=== PATIENT | male | born 1970 | race Asian ===

== ENCOUNTER 2023-02-27 16:14 | Emergency (ER) | payer OTHER ==
[2023-02-27] MEDS ORDERED: Boostrix 0.5 ML (Tdap) VIAL (>/=7 yrs of age) ONE (16:43)
== END 2023-02-27 16:50 | disposition home or self-care (01) ==
LOC: MADERS 16:14
DX: S91.332A Puncture wound without foreign body, left foot, initial encounter (principal); Z23 Encounter for immunization; W45.0XXA Nail entering through skin, initial encounter
CPT/HCPCS: 90471; 90715